=== PATIENT | male | born 1935 | race Caucasian/White ===

== ENCOUNTER 2017-03-20 20:55 | Emergency (ER) | payer OTHER ==
[2017-03-20 21:04] VITALS: BP 155/69
== END 2017-03-21 00:02 | disposition home or self-care (01) ==
LOC: ED 20:55
DX: H10.89 Other conjunctivitis (principal); B96.89 Other specified bacterial agents as the cause of diseases classified elsewhere; Z88.5 Allergy status to narcotic agent